=== PATIENT | female | born 1960 | race Caucasian/White ===

== ENCOUNTER 2016-05-10 17:42 | Emergency (ER) | payer OTHER ==
[2016-05-10 17:57] VITALS: RESP 18; O2SAT 97
[2016-05-10] MEDS ORDERED: MIDAZOLAM 2 MG/2 ML VIAL IVP ONE (18:44)
--- NOTE | 2016-05-10 18:53 | EDPHY ---
H & P Time Seen by Provider: 05/10/16 18:22 HPI/ROS: CHIEF COMPLAINT: Anxiety HISTORY OF PRESENT ILLNESS: Patient is a 56-year-old female who presents to the emergency department with anxiety and a sensation of "high blood pressure." The patient states that she has had similar experiences in the past. She feels shaky and anxious. No chest pain or shortness of breath. No nausea or vomiting. No change in urine output. No headache. No focal weakness or numbness. REVIEW OF SYSTEMS: My complete review of systems is negative except as mentioned in the HPI. Past Medical/Surgical History: Includes anxiety Social history: The patient does not smoke use alcohol. She does use THC oil Smoking Status: Never smoked Physical Exam: 36.5, 171/116, 90, 18, 97% on room air GENERAL: Well-appearing, in no acute distress, alert. HEENT: Eyes normal to inspection, normal pharynx, no signs of dehydration. NECK: No thyromegaly, no lymphadenopathy, supple. RESPIRATORY: Clear to auscultation bilaterally, no rales, rhonchi or wheezing. CVS: Regular rate and rhythm, no rubs, murmurs, or gallops. ABDOMEN: Soft, nontender, nondistended, no organomegaly. BACK: Normal to inspection, no CVA tenderness. SKIN: Normal color, no rash, warm, dry. No pallor. EXTREMITIES: No pedal edema, no calf tenderness, no Homans sign or cords, no joint swelling. NEURO/PSYCH: Higher functions: Alert and Oriented x3. Normal speech and cognition. Normal mood and affect. Cranial nerves: Normal as tested. Cerebellar: Normal as tested. Good finger to nose, good [id number], normal gait. Peripheral exam: Normal motor exam. Normal sensation. Constitutional: Initial Vital Signs Temperature (C) 36.5 C 05/10/16 17:52 Heart Rate 90 05/10/16 17:52 Respiratory Rate 18 05/10/16 17:52 Blood Pressure 171/116 H 05/10/16 17:52 O2 Sat (%) 97 05/10/16 17:52 O2 Delivery Mode Room Air Allergies/Adverse Reactions: No Known Allergies Allergy (Verified 05/10/16 17:52) Home Medications: Medication Instructions Recorded LORazepam [Ativan (*)] 1 mg PO TID #9 tab 05/10/16 Medical Decision Making ED Course/Re-evaluation: In the emergency department I discussed possible etiologies with the patient. She requested "versed." Laboratory studies were ordered. Patient was given Versed 0.5 mg IV. Patient's laboratory studies were were notable for low sodium. I reviewed her previous laboratory studies. She has a history of hyponatremia. I discussed the results with the patient. I answered all her questions. She was feeling much better on recheck. She had no focal neurologic deficits. I discussed the importance of close follow-up with a primary care physician for her high blood pressure. I told her that this did need to be treated. Differential Diagnosis: My differential includes but is not limited to hypertensive urgency, hypertensive emergency, renal dysfunction, anxiety, CVA - Data Points Laboratory Results: Laboratory Results 05/10/16 19:08 05/10/16 19:08 05/10/16 05/10/16 19:08 19:08 WBC 5.49 10^3/uL 10^3/uL (3.80-9.50) RBC 4.59 10^6/uL 10^6/uL (4.18-5.33) Hgb 14.7 g/dL g/dL (12.6-16.3) Hct 41.7 % % (38.0-47.0) MCV 90.8 fL fL (81.5-99.8) MCH 32.0 pg pg (27.9-34.1) MCHC 35.3 g/dL g/dL (32.4-36.7) RDW 12.2 % % (11.5-15.2) Plt Count 330 10^3/uL 10^3/uL (150-400) MPV 10.1 fL fL (8.7-11.7) Neut % (Auto) 44.2 % % (39.3-74.2) Lymph % (Auto) 46.6 % H % (15.0-45.0) [place] % (Auto) 8.0 % % (4.5-13.0) Eos % (Auto) 0.5 % L % (0.6-7.6) Baso % (Auto) 0.5 % % (0.3-1.7) Nucleat RBC Rel Count 0.0 % % (0.0-0.2) Absolute Neuts (auto) 2.42 10^3/uL 10^3/uL (1.70-6.50) Absolute Lymphs (auto) 2.56 10^3/uL 10^3/uL (1.00-3.00) Absolute Monos (auto) 0.44 10^3/uL 10^3/uL (0.30-0.80) Absolute Eos (auto) 0.03 10^3/uL 10^3/uL (0.03-0.40) Absolute Basos (auto) 0.03 10^3/uL 10^3/uL (0.02-0.10) Absolute Nucleated RBC 0.00 10^3/uL 10^3/uL (0-0.01) Immature Gran % 0.2 % % (0.0-1.1) Immature Gran # 0.01 10^3/uL 10^3/uL (0.00-0.10) Sodium 132 mEq/L L mEq/L (134-144) Potassium 3.8 mEq/L mEq/L (3.5-5.2) Chloride 98 mEq/L mEq/L (97-110) Carbon Dioxide 23 mEq/l mEq/l (22-31) Anion Gap 11 mEq/L mEq/L (8-16) BUN 13 mg/dL mg/dL (7-23) Creatinine 0.8 mg/dL mg/dL (0.6-1.0) Estimated GFR > 60 Glucose 87 mg/dL mg/dL (70-100) Calcium 10.6 mg/dL H mg/dL (8.5-10.4) Medications Given: Discontinued Medications Midazolam HCl (Versed) 0.5 mg IVP EDNOW ONE Stop: 05/10/16 18:45 Last Admin: 05/10/16 19:16 Dose: 0.5 mg Departure - Departure Disposition: Home, Routine, Self-Care Clinical Impression: Hyponatremia Hypertension Qualifiers: Hypertension type: other secondary hypertension Qualified Code(s): I15.8 - Other secondary hypertension Condition: Good Instructions: Hypertension (ED), Hyponatremia (ED) Additional Instructions: You have elevated blood pressure. This required close follow-up with the primary care physician. You also have noted low sodium. This will need to be addressed by your primary physician as well. Referrals: JERRY BECERRA [Primary Care Provider] - 2-3 days, call for appt. Prescriptions: LORazepam [Ativan (*)] 1 mg PO TID #9 tab
[2016-05-10 19:19] LABS: % IMMATURE GRANULYOCYTES 0.2 % (0.0-1.1); ABSOLUTE IMMATURE GRANULOCYTES 0.01 10^3/uL (0.00-0.10); ADD DIFF? NO; ADD MORPH? NO; ADD SCAN? NO; ATYPICAL LYMPHOCYTE FLAG 0 (0-99); FRAGMENT RBC FLAG 0 (0-99); HEMATOCRIT 41.7 % (38.0-47.0); HEMOGLOBIN 14.7 g/dL (12.6-16.3); LEFT SHIFT FLG 0 (0-99); LIPEMIA HEMOLYSIS FLAG 90 (0-99); MEAN CELL HEMOGLOBIN CONCENTR. 35.3 g/dL (32.4-36.7); MEAN CELL VOLUME 90.8 fL (81.5-99.8); MEAN PLATELET VOLUME 10.1 fL (8.7-11.7); PLATELET CLUMPS FLAG 20 (0-99); PLATELET COUNT 330 10^3/uL (150-400); RED BLOOD CELL COUNT 4.59 10^6/uL (4.18-5.33); RED CELL DISTRIBUTION WIDTH 12.2 % (11.5-15.2)
[2016-05-10 19:40] LABS: ANION GAP 11 mEq/L (8-16); CALCIUM 10.6 mg/dL (8.5-10.4); CARBON DIOXIDE 23 mEq/l (22-31); CHLORIDE 98 mEq/L (97-110); CREATININE 0.8 mg/dL (0.6-1.0); GLOMERULAR FILTRATION RATE > 60; GLUCOSE 87 mg/dL (70-100); POTASSIUM 3.8 mEq/L (3.5-5.2); SODIUM 132 mEq/L (134-144)
[2016-05-10 20:19] VITALS: BP 151/99; PULSE 75; TEMP 97.9
== END 2016-05-10 20:18 | disposition home or self-care (01) ==
DX: E87.1 Hypo-osmolality and hyponatremia (principal); I10 Essential (primary) hypertension
CPT/HCPCS: 96374; J2250